=== PATIENT | female | born 1975 | race Caucasian/White ===

== ENCOUNTER 2016-12-21 12:13 | Emergency (ER) | payer OTHER ==
--- NOTE | 2016-12-21 14:22 | UC ---
Throat Pain/Nasal Oliver HPI - HPI Summary HPI Summary: Developed significant nasal congestion, sneezing, throat irritation 8-9 days ago. Since then nasal congestion has settled down a bit (but not gone) and has developed productive cough and chest congestion. Denies fever or trouble breathing. Concerned about contagion and green sputum. - History of Current Complaint Chief Complaint: UCGeneralIllness Stated Complaint: COUGH,CONGEST, Time Seen by Provider: 12/21/16 13:43 Hx Obtained From: Patient Hx Last Menstrual Period: 11/30/16 ?: No Onset/Duration: Lasting Weeks Severity: Mild Pain Intensity: 0 Pain Scale Used: 0-10 Numeric Cough: Productive Associated Signs & Symptoms: Positive: Sinus Discomfort, Nasal Discharge. Negative: Wheezing, Fever, Vomiting - Allergies/Home Medications Allergies/Adverse Reactions: Allergies Allergy/AdvReac Type Severity Reaction Status Date / Time No Known Allergies Allergy Verified 12/21/16 13:55 Home Medications: Home Medications Multiple Vitamin [Multi Vitamin] 1 tab PO DAILY 12/21/16 [History Confirmed 12/04] Norgestimate-Eth Estradiol(NF) [Ortho Tri-Cyclen (NF)] 1 tab PO DAILY 12/21/16 [ History Confirmed 12/21/16] Ovqrflfqebkcf-Faafcrdrnk-Xvipf [VICKS DAYQUIL/NYQUIL COLD (Liquid)] 30 ml PO Q8HR PRN 12/21/16 [History Confirmed 12/21/16] PMH/Surg Hx/FS Hx/Imm Hx Previously Healthy: Yes - Surgical History Surgical History: Yes Surgery Procedure, Year, and Place: 2001 - Family History Known Family History: Positive: Hypertension - Social History Lives: With Family Alcohol Use: Rare Substance Use Type: None Smoking Status (MU): Never Smoked Tobacco Review of Systems Constitutional: Negative Skin: Negative Eyes: Negative ENT: Nasal Discharge Respiratory: Cough Cardiovascular: Negative Gastrointestinal: Negative Genitourinary: Negative Motor: Negative Neurovascular: Negative Musculoskeletal: Negative Neurological: Negative Psychological: Negative All Other Systems Reviewed And Are Negative: Yes Physical Exam Triage Information Reviewed: Yes Appearance: Well-Appearing, Obese Vital Signs: Initial Vital Signs Temp 98.6 F 12/21/16 13:14 Pulse 99 12/21/16 13:14 Resp 18 12/21/16 13:14 BP 136/82 12/21/16 13:14 Pulse Ox 96 12/21/16 13:14 Vital Signs Reviewed: Yes Eye Exam: Normal Eyes: Positive: Conjunctiva Clear ENT: Positive: Hearing grossly normal, Pharynx normal, Nasal congestion, TMs normal. Negative: Tonsillar swelling, Tonsillar exudate Dental Exam: Normal Neck exam: Normal Neck: Positive: Supple, Nontender, No Lymphadenopathy Respiratory Exam: Normal Respiratory: Positive: Chest non-tender, Lungs clear, Normal breath sounds, No respiratory distress, No accessory muscle use Cardiovascular Exam: Normal Cardiovascular: Positive: RRR, No Murmur Musculoskeletal Exam: Normal Neurological Exam: Normal Psychological Exam: Normal Skin Exam: Normal Throat Pain/Nasal Course/Dx - Differential Dx/Diagnosis Provider Diagnoses: URI likely viral Discharge - Discharge Plan Condition: Stable Disposition: HOME Prescriptions: Guaifenesin-Codeine [Guaiatussin AC 100-10 mg/5Ml] 5 - 10 ml PO Q6H #120 ml MDD 40mL Patient Education Materials: Upper Respiratory Infection (ED) Referrals: Florencio Obrien MD [Primary Care Provider] - 2 Weeks Additional Instructions: Call or return if you develop increasing fever, shortness of breath, chest pain , bloody sputum, or otherwise worsen. If you have not improved at all after several days, contact your primary care physician or return here. NASAL SPRAYS AND DROPS: Decongestant nasal sprays and drops often give dramatic relief from congestion. They are often recommended for patients with sinus infection to assist with sinus drainage. Persons with high blood pressure should consult the doctor before using these nasal sprays. Afrin and Raheem-Synephrine are common kqpw-zkc-pkeahus preparations. They should not be used for more than three days, as "rebound" congestion can occur - - the congestion flares as the drug wears off. A way of dealing with this rebound congestion problem is to medicate only one nostril each time, allowing the other nostril to recover from the medicine' s effects. When you no longer need the drug during the day, spray only one nostril each night. This helps you sleep well without severe rebound congestion. Call your doctor if you develop severe headache, palpitations, or chest pain.
== END 2016-12-21 14:16 | disposition home or self-care (01) ==
LOC: UCEAST 12:13
DX: J06.9 Acute upper respiratory infection, unspecified (principal); E66.9 Obesity, unspecified
CPT/HCPCS: 99202; G0463

== ENCOUNTER 2017-02-02 14:32 | Emergency (ER) | payer OTHER ==
[2017-02-02] MEDS ORDERED: NS 0.9% 1000 ML* 1,000 ML IV ONE (15:34)
[2017-02-02 16:24] LABS: Hematocrit 39 % (35-47); Mean Corpuscular HGB Conc 33 g/dl (31-36); Mean Corpuscular Hemoglobin 30 pg (27-31); Mean Corpuscular Volume 91 fL (80-97); Mean Platelet Volume 9 um3 (7.4-10.4); Red Cell Distribution Width 13 % (10.5-15); White Blood Count 13.6 10^3/ul (3.5-10.8)
[2017-02-02 16:27] LABS: Albumin 4.1 g/dL (3.2-5.2); BUN/Creatinine Ratio 13.6 (8-20); Calcium 9.5 mg/dL (8.6-10.3); EGFR African American 127.6 (>60); EGFR Non-African American 99.2 (>60); Globulin 3.2 g/dL (2-4); Total Bilirubin 0.4 mg/dL (0.2-1.0); Total Protein 7.3 g/dL (6.4-8.9)
[2017-02-02 16:55] LABS: TSH (Thyroid Stimulating Horm) 2.53 mcIU/mL (0.34-5.60)
[2017-02-02] MEDS ORDERED: Iohexol 350* (CONTRAST) 500 ML MDV IV ONE (17:10)
--- NOTE | 2017-02-02 17:45 | RAD ---
Indication: Palpitations, elevated d-dimer. Contrast: Administered 77.9 ml of OMNIPAQUE 350 mgi/ml CTA of the chest was performed after oral and IV contrast administration. Coronal and sagittal reconstructed images were obtained. The inferior thyroid lobes are unremarkable. There is no mediastinal or hilar adenopathy. The pulmonary arterial tree is well opacified. There are no filling defects present to suggest pulmonary embolus. The aorta demonstrates no evidence of aortic dissection or aneurysmal dilatation. There is an isolated left-sided superior vena cava with straining into the right atrium and ventricle. The heart demonstrates no pericardial effusion. The chin major bronchi appear patent. There is some atelectasis in the superior segment of the right lower lobe. No alveolar consolidation is noted. No pneumothorax is noted. The patient is status post cholecystectomy. The visualized abdominal organs demonstrates hepatic steatosis. No adrenal lesions are noted. IMPRESSION: No evidence of pulmonary embolus is noted. Isolated left-sided superior vena cava. Hepatic steatosis is noted..
--- NOTE | 2017-02-02 17:48 | ED ---
Syncope/Near Syncope - HPI Summary HPI Summary: 42F presents with lightheadedness and palpitations. had cholecystomecy 01/28. since then has intermittent lightheadedness and palpations. used to occur with just standing but now happens with no trigger factor. She denies any chest pain or SOB. She denies any nausea or vomiting. She states that she has been slowly introducing food after the surgery so her appetite has not been great. She is also on OCP. She denies any recent travel. She denies any family history of blood clots. - History Of Current Complaint Chief Complaint: EDDizziness Time Seen by Provider: 02/02/17 15:08 - Allergies/Home Medications Allergies/Adverse Reactions: Allergies Allergy/AdvReac Type Severity Reaction Status Date / Time Codeine Allergy Eyes Verified 02/02/17 14:54 Itchy/Swollen/Red/Watery PMH/Surg Hx/FS Hx/Imm Hx Endocrine/Hematology History: Denies: Hx Diabetes Cardiovascular History: Denies: Hx Hypertension History: Denies: Hx Renal Disease - Surgical History Surgery Procedure, Year, and Place: 2001. CHOLECYSTECTOMY-01/28/17 Infectious Disease History: No Infectious Disease History: Denies: Traveled Outside the [place] in Last 30 Days - Family History Known Family History: Positive: Hypertension - Social History Alcohol Use: Rare Substance Use Type: Reports: None Smoking Status (MU): Never Smoked Tobacco Review of Systems Negative: Fever Positive: Palpitations. Negative: Chest Pain Negative: Shortness Of Breath Neurological: Other - lightheadness All Other Systems Reviewed And Are Negative: Yes Physical Exam Triage Information Reviewed: Yes Vital Signs On Initial Exam: Initial Vitals Temp Pulse Resp BP Pulse Ox 98 F 83 16 139/92 97 02/02/17 14:51 02/02/17 14:51 02/02/17 14:51 02/02/17 14:51 02/02/17 14:51 Vital Signs Reviewed: Yes Appearance: Positive: Well-Appearing Skin: Positive: Warm, Dry Head/Face: Positive: Normal Head/Face Inspection Eyes: Positive: Normal, Conjunctiva Clear ENT: Positive: Normal ENT inspection, Pharynx normal, TMs normal Respiratory/Lung Sounds: Positive: Clear to Auscultation, Breath Sounds Present Cardiovascular: Positive: Normal, RRR Abdomen Description: Positive: Other: - mild tenderness on healing surgical scars Bowel Sounds: Positive: Present Neurological: Positive: Sensory/Motor Intact, Alert, Oriented to Person Place, Time, CN Intact II-III, Heel to Toe, Finger to Nose - [place] Coma Scale Best Eye Response: 4 - Spontaneous Best Motor Response: 6 - Obeys Commands Best Verbal Response: 5 - Oriented Coma Scale Total: 15 Diagnostics - Vital Signs Vital Signs Temp Pulse Resp BP Pulse Ox 02/02/17 14:55 98 F 83 16 139/92 97 02/02/17 14:51 98 F 83 16 139/92 97 - Laboratory Lab Results: Lab Results 02/02/17 02/02/17 02/02/17 Range/Units 15:55 15:55 15:55 WBC 13.6 H (3.5-10.8) 10^3/ul RBC 4.30 (4.0-5.4) 10^6/ul Hgb 13.0 (12.0-16.0) g/dl Hct 39 (35-47) % MCV 91 (80-97) fL MCH 30 (27-31) pg MCHC 33 (31-36) g/dl RDW 13 (10.5-15) % Plt Count 326 (150-450) 10^3/ul MPV 9 (7.4-10.4) um3 Neut % (Auto) 71.5 (38-83) % Lymph % (Auto) 18.6 L (25-47) % [place] % (Auto) 7.5 (1-9) % Eos % (Auto) 1.4 (0-6) % Baso % (Auto) 1.0 (0-2) % Absolute Neuts (auto) 9.7 H (1.5-7.7) 10^3/ul Absolute Lymphs (auto) 2.5 (1.0-4.8) 10^3/ul Absolute Monos (auto) 1.0 H (0-0.8) 10^3/ul Absolute Eos (auto) 0.2 (0-0.6) 10^3/ul Absolute Basos (auto) 0.1 (0-0.2) 10^3/ul Absolute Nucleated RBC 0.02 10^3/ul Nucleated RBC % 0.1 D-Dimer, Quantitative (Less Than 230) ng/mL Sodium 135 (133-145) mmol/L Potassium 4.0 (3.5-5.0) mmol/L Chloride 103 (101-111) mmol/L Carbon Dioxide 23 (22-32) mmol/L Anion Gap 9 (2-11) mmol/L BUN 9 (6-24) mg/dL Creatinine 0.66 (0.51-0.95) mg/dL Est GFR ( Amer) 127.6 (>60) Est GFR (Non-Af Amer) 99.2 (>60) BUN/Creatinine Ratio 13.6 (8-20) Glucose 119 H (70-100) mg/dL Lactic Acid 1.5 (0.5-2.0) mmol/L Calcium 9.5 (8.6-10.3) mg/dL Magnesium 2.0 (1.9-2.7) mg/dL Total Bilirubin 0.40 (0.2-1.0) mg/dL AST 43 H (13-39) U/L ALT 45 (7-52) U/L Alkaline Phosphatase 85 (34-104) U/L Troponin I 0.00 (<0.04) ng/mL Total Protein 7.3 (6.4-8.9) g/dL Albumin 4.1 (3.2-5.2) g/dL Globulin 3.2 (2-4) g/dL Albumin/Globulin Ratio 1.3 (1-3) TSH 2.53 (0.34-5.60) mcIU/mL // Range/Units 15:55 WBC (3.5-10.8) 10^3/ul RBC (4.0-5.4) 10^6/ul Hgb (12.0-16.0) g/dl Hct (35-47) % MCV (80-97) fL MCH (27-31) pg MCHC (31-36) g/dl RDW (10.5-15) % Plt Count (150-450) 10^3/ul MPV (7.4-10.4) um3 Neut % (Auto) (38-83) % Lymph % (Auto) (25-47) % [place] % (Auto) (1-9) % Eos % (Auto) (0-6) % Baso % (Auto) (0-2) % Absolute Neuts (auto) (1.5-7.7) 10^3/ul Absolute Lymphs (auto) (1.0-4.8) 10^3/ul Absolute Monos (auto) (0-0.8) 10^3/ul Absolute Eos (auto) (0-0.6) 10^3/ul Absolute Basos (auto) (0-0.2) 10^3/ul Absolute Nucleated RBC 10^3/ul Nucleated RBC % D-Dimer, Quantitative 438 H (Less Than 230) ng/mL Sodium (133-145) mmol/L Potassium (3.5-5.0) mmol/L Chloride (101-111) mmol/L Carbon Dioxide (22-32) mmol/L Anion Gap (2-11) mmol/L BUN (6-24) mg/dL Creatinine (0.51-0.95) mg/dL Est GFR ( Amer) (>60) Est GFR (Non-Af Amer) (>60) BUN/Creatinine Ratio (8-20) Glucose (70-100) mg/dL Lactic Acid (0.5-2.0) mmol/L Calcium (8.6-10.3) mg/dL Magnesium (1.9-2.7) mg/dL Total Bilirubin (0.2-1.0) mg/dL AST (13-39) U/L ALT (7-52) U/L Alkaline Phosphatase (34-104) U/L Troponin I (<0.04) ng/mL Total Protein (6.4-8.9) g/dL Albumin (3.2-5.2) g/dL Globulin (2-4) g/dL Albumin/Globulin Ratio (1-3) TSH (0.34-5.60) mcIU/mL Result Diagrams: 02/02/17 15:55 02/02/17 15:55 Lab Statement: Any lab studies that have been ordered have been reviewed, and results considered in the medical decision making process. - CT CTA chest CT Interpretation: No Acute Changes - IMPRESSION: No evidence of pulmonary embolus is noted. Isolated left-sided superior vena cava. Hepatic steatosis is noted.. CT Interpretation Completed By: Radiologist - EKG No standard instances Cardiac Rate: NL EKG Rhythm: Sinus Rhythm ST Segment: Normal Course/Dx Course Of Treatment: 42F presents with lightheadness and palpitations since having her gallbladder removed 01/28. she denies any chest pain or SOB. Her appetite has been poor. She is on OCP. She alan any family history of blood clots. Her physicial exam was normal. got labs and d-dimer was positive so CTA chest which was normal. explained that do not have reason for palpitations but EKG normal and no PE so likely due to poor appetie and dehydration. patient understands and agrees with plan - Diagnoses Differential Diagnosis/HQI/PQRI: Positive: Hypoglycemia, Hypovolemia, Pulmonary Embolism Provider Diagnoses: Near syncope Discharge - Discharge Plan Condition: Good Disposition: HOME Patient Education Materials: Near Syncope (ED) Referrals: Florencio Obrien MD [Primary Care Provider] - Additional Instructions: Stand up slowly Drink plenty of fluids Follow up with primary within 5 days Return to ED if develop any new or worsening symptoms
[2017-02-02] MEDS ORDERED: Iohexol 350* (CONTRAST) 500 ML MDV IV SCH (18:00)
== END 2017-02-02 18:22 | disposition home or self-care (01) ==
LOC: ED 14:32
DX: R00.2 Palpitations (principal); R55 Syncope and collapse; R53.1 Weakness; R42 Dizziness and giddiness
CPT/HCPCS: 36415; 71275; 80053; 83605; 83735; 84443; 84484; 85025; 85379; 93005; 99282; Q9967

== ENCOUNTER 2018-08-02 12:51 | Emergency (ER) | payer OTHER ==
--- NOTE | 2018-08-02 13:06 | UC ---
Cardiac HPI - HPI Summary HPI Summary: 43 yo female presents with chest pressure. She tells me that last night she was sitting watching tv and developed a pressure in her chest and felt like her heart was racing. She began to feel like she was going to pass out and felt a cooling sensation come over her face. This went away a few minutes later spontaneously, but returned multiple times throughout the rest of the night. These symptoms also woke her up in the middle of the night multiple times. This morning her symptoms were still present and seemed worse than yesterday - prompting her visit to . She had one instance with similar symptoms about a year ago that resolved with minutes. She denies recent illness, fever, chills, SOB, chest pain, abdominal pain, n/v. - History of Current Complaint Stated Complaint: CHEST PRESSURE Time Seen by Provider: 08/02/18 12:53 Hx Obtained From: Patient Hx Last Menstrual Period: 11/30/16 Onset/Duration: Sudden Onset Initial Severity: Mild Current Severity: Mild Pain Intensity: 2 - Allergy/Home Medications Allergies/Adverse Reactions: Allergies Allergy/AdvReac Type Severity Reaction Status Date / Time codeine Allergy Eyes Verified 08/02/18 13:17 Itchy/Swollen/Red/Watery PMH/Surg Hx/FS Hx/Imm Hx - Additional Past Medical History Additional PMH: None - Surgical History Surgical History: Yes Surgery Procedure, Year, and Place: 2001. CHOLECYSTECTOMY-01/28/17 - Family History Known Family History: Positive: Hypertension - Social History Occupation: Employed Full-time Lives: With Family Alcohol Use: Rare Substance Use Type: None Smoking Status (MU): Never Smoked Tobacco Review of Systems All Other Systems Reviewed And Are Negative: Yes Constitutional: Positive: Negative Skin: Positive: Negative Respiratory: Positive: Negative Cardiovascular: Positive: Palpitations, Other - Chest pressure Gastrointestinal: Positive: Negative Genitourinary: Positive: Negative Neurovascular: Positive: Negative Neurological: Positive: Negative Psychological: Positive: Negative Physical Exam - Summary Physical Exam Summary: GENERAL: NAD. WDWN. No pain distress. SKIN: No rashes, sores, lesions, or open wounds. NECK: Supple. Nontender. No lymphadenopathy. CHEST: CTAB. No r/r/w. No accessory muscle use. Breathing comfortably and in no distress. CV: RRR. Without m/r/g. Pulses intact. Cap refill <2seconds ABDOMEN: Soft. NTTP. No distention or guarding. No CVA tenderness. Bowel sounds present NEURO: Alert. PSYCH: Age appropriate behavior. Triage Information Reviewed: Yes Vital Signs: Vital Signs: Temp Pulse Resp BP Pulse Ox 99 F 101 20 131/82 96 08/02/18 13:19 18 13:19 08/02/18 13:19 08/02/18 13:19 08/02/18 13:19 Vital Signs Reviewed: Yes - Assessment/Plan Course Of Treatment: EKG: Sinus tach at 101bpm. No ST changes as read by Dr. Gann. POC glucose mildly elevated at 134. Discussed with pt that for a more appropriate work up including cardiac monitoring, labwork, and imaging - she should be further evaluated in the ED. She was agreeable to this plan and refused ambulance transfer. She will drive herself. - Clinical Impression Provider Diagnoses: Chest pressure. Palpitations Discharge - Sign-Out/Discharge Documenting (check all that apply): Patient Departure All imaging exams completed and their final reports reviewed: No Studies - Discharge Plan Condition: Stable Disposition: HOME-RECOMMEND TO ED Referrals: Florencio bOrien MD [Primary Care Provider] - Additional Instructions: Please go to the ER for further evaluation of your near-syncope and palpitations - Billing Disposition and Condition Condition: STABLE Disposition: Home-Recommend to ED
[2018-08-02 13:22] VITALS: BP 131/82
== END 2018-08-02 13:38 | disposition home health service (06) ==
LOC: UCEAST 12:51
DX: R00.2 Palpitations (principal); Z88.5 Allergy status to narcotic agent
CPT/HCPCS: 93005; 99212; G0463

== ENCOUNTER 2018-11-10 07:08 | Emergency (ER) | payer OTHER ==
[2018-11-10] MEDS ORDERED: NS 0.9% 1000 ML** 1,000 ML IV ONE (07:40)
[2018-11-10 08:24] LABS: ABS Basophils 0 10^3/ul (0-0.2); ABS Eosinophils 0 10^3/ul (0-0.6); ABS Lymphocytes 1.7 10^3/ul (1.0-4.8); ABS Monocytes 0.5 10^3/ul (0-0.8); ABS Neutrophils 9.3 10^3/ul (1.5-7.7); ABS Nucleated RBC 0 10^3/ul; Eosinophil % 0.4 %; Hematocrit 39 % (35-47); Hemoglobin 12.9 g/dl (12.0-16.0); Lymphocyte % 14.7 %; Mean Corpuscular HGB Conc 33 g/dl (31-36); Mean Corpuscular Hemoglobin 30 pg (27-31); Mean Corpuscular Volume 92 fL (80-97); Mean Platelet Volume 8.4 fL (7.4-10.4); Nucleated Red Blood Cells % 0; Platelet Count 286 10^3/ul (150-450); Red Blood Count 4.24 10^6/ul (4.00-5.40); Red Cell Distribution Width 13 % (10.5-15); White Blood Count 11.7 10^3/ul (3.5-10.8)
[2018-11-10 08:45] LABS: ALT 30 U/L (7-52); AST 43 U/L (13-39); Albumin 4.2 g/dL (3.2-5.2); Albumin/Globulin Ratio 1.4 (1-3); Alkaline Phosphatase 69 U/L (34-104); Anion Gap 12 mmol/L (2-11); BUN/Creatinine Ratio 10.7 (8-20); Blood Urea Nitrogen 8 mg/dL (6-24); CO2 Carbon Dioxide 23 mmol/L (22-32); Calcium 9.6 mg/dL (8.6-10.3); Chloride 103 mmol/L (101-111); EGFR Non-African American 85.2 (>60); Glucose 157 mg/dL (70-100); Magnesium 1.8 mg/dL (1.9-2.7); Sodium 138 mmol/L (135-145); Total Protein 7.2 g/dL (6.4-8.9)
[2018-11-10 08:49] LABS: HCG Pregnancy < 0.60 mIU/mL
[2018-11-10 09:24] LABS: Urine Appearance Cloudy; Urine Bacteria Absent (Absent); Urine Bilirubin Negative (Negative); Urine Blood 2+ (Negative); Urine Color Straw; Urine Glucose Negative (Negative); Urine Ketones Negative (Negative); Urine Nitrite Negative (Negative); Urine Protein Negative (Negative); Urine Red Blood Cell Trace(0-2/hpf) (Absent); Urine Specific Gravity 1.003 (1.010-1.030); Urine Squamous Epithelial Cell Present (Absent); Urine Urobilinogen Negative (Negative); Urine White Blood Cell Absent (Absent)
[2018-11-10 10:09] VITALS: BP 141/89
--- NOTE | 2018-11-11 05:46 | ED ---
Abdominal Pain/Female - HPI Summary HPI Summary: Patient is a 43-year-old female who presents to the emergency department for ongoing abdominal pain and vomiting 2 weeks. Patient states pain worsened today and she presents for evaluation. Patient notes been having issues with intermittent diarrhea and constipation. Patient notes she feels as though she has a lot of gas and bloating trapped her abdomen. Symptoms are moderate in severity. No current modifying factors. Patient otherwise denies past medical history. Otherwise denies fever, chills, URI sxs, urinary sxs. - History of Current Complaint Chief Complaint: EDNauseaVomitDiarrh Stated Complaint: GENERAL ILLNESS Time Seen by Provider: 11/10/18 07:20 Hx Obtained From: Patient Hx Last Menstrual Period: 11/30/16 Pain Intensity: 0 Pain Scale Used: 0-10 Numeric Allergies/Adverse Reactions: Allergies Allergy/AdvReac Type Severity Reaction Status Date / Time codeine Allergy Eyes Verified 08/02/18 13:17 Itchy/Swollen/Red/Watery PMH/Surg Hx/FS Hx/Imm Hx Previously Healthy: Yes Endocrine/Hematology History: Denies: Hx Diabetes Cardiovascular History: Denies: Hx Hypertension History: Denies: Hx Renal Disease - Surgical History Surgery Procedure, Year, and Place: 2001. CHOLECYSTECTOMY-01/28/17 - Immunization History Immunizations Up to Date: Yes Infectious Disease History: No Infectious Disease History: Denies: Traveled Outside the [place] in Last 30 Days - Family History Known Family History: Positive: Hypertension - Social History Occupation: Unemployed Lives: With Family Alcohol Use: Rare Substance Use Type: Reports: None Smoking Status (MU): Never Smoked Tobacco Review of Systems Constitutional: Negative Negative: Fever, Chills Eyes: Negative ENT: Negative Cardiovascular: Negative Respiratory: Negative Positive: Abdominal Pain. Negative: Vomiting, Diarrhea Genitourinary: Negative Negative: dysuria, frequency, flank pain Neurological: Negative All Other Systems Reviewed And Are Negative: Yes Physical Exam Triage Information Reviewed: Yes Vital Signs On Initial Exam: Initial Vitals Temp Pulse Resp BP Pulse Ox 98.1 F 102 16 115/87 97 11/10/18 07:18 11/10/18 07:18 11/10/18 07:18 11/10/18 07:18 11/10/18 07:18 Vital Signs Reviewed: Yes Appearance: Positive: Well-Appearing - Pt. sitting up in bed in NAD. present. Anxious. Skin: Positive: Warm, Dry Head/Face: Positive: Normal Head/Face Inspection Eyes: Positive: Normal, EOMI Neck: Positive: Supple Respiratory/Lung Sounds: Positive: Clear to Auscultation, Breath Sounds Present Cardiovascular: Positive: Normal, RRR Abdomen Description: Positive: Other: - Abese. Mildy distended with mild diffuse tenderness on exam. No rebound tenderness or guarding. Negative frost sign. Musculoskeletal: Positive: Normal, Strength/ROM Intact Neurological: Positive: Normal, Alert, Oriented to Person Place, Time, CN Intact II-III Psychiatric: Positive: Affect/Mood Appropriate Diagnostics - Vital Signs Vital Signs Temp Pulse Resp BP Pulse Ox 11/10/18 10:05 99 F 87 17 141/89 98 11/10/18 09:04 89 127/85 97 11/10/18 08:34 86 129/93 97 11/10/18 07:18 98.1 F 102 16 115/87 97 - Laboratory Lab Results: Lab Results 11/10/18 11/10/18 11/10/18 Range/Units 08:13 08:13 08:46 WBC 11.7 H (3.5-10.8) 10^3/ul RBC 4.24 (4.00-5.40) 10^6/ul Hgb 12.9 (12.0-16.0) g/dl Hct 39 (35-47) % MCV 92 (80-97) fL MCH 30 (27-31) pg MCHC 33 (31-36) g/dl RDW 13 (10.5-15) % Plt Count 286 (150-450) 10^3/ul MPV 8.4 (7.4-10.4) fL Neut % (Auto) 79.8 % Lymph % (Auto) 14.7 % [place] % (Auto) 4.7 % Eos % (Auto) 0.4 % Baso % (Auto) 0.4 % Absolute Neuts (auto) 9.3 H (1.5-7.7) 10^3/ul Absolute Lymphs (auto) 1.7 (1.0-4.8) 10^3/ul Absolute Monos (auto) 0.5 (0-0.8) 10^3/ul Absolute Eos (auto) 0 (0-0.6) 10^3/ul Absolute Basos (auto) 0 (0-0.2) 10^3/ul Absolute Nucleated RBC 0 10^3/ul Nucleated RBC % 0 Sodium 138 (135-145) mmol/L Potassium 4.0 (3.5-5.0) mmol/L Chloride 103 (101-111) mmol/L Carbon Dioxide 23 (22-32) mmol/L Anion Gap 12 H (2-11) mmol/L BUN 8 (6-24) mg/dL Creatinine 0.75 (0.51-0.95) mg/dL Est GFR ( Amer) 103.0 (>60) Est GFR (Non-Af Amer) 85.2 (>60) BUN/Creatinine Ratio 10.7 (8-20) Glucose 157 H (70-100) mg/dL Calcium 9.6 (8.6-10.3) mg/dL Magnesium 1.8 L (1.9-2.7) mg/dL Total Bilirubin 0.50 (0.2-1.0) mg/dL AST 43 H (13-39) U/L ALT 30 (7-52) U/L Alkaline Phosphatase 69 (34-104) U/L Total Protein 7.2 (6.4-8.9) g/dL Albumin 4.2 (3.2-5.2) g/dL Globulin 3.0 (2-4) g/dL Albumin/Globulin Ratio 1.4 (1-3) Lipase < 10 L (11.0-82.0) U/L Beta HCG, Quant < 0.60 mIU/mL Urine Color Straw Urine Appearance Cloudy Urine pH 6.0 (5-9) Ur Specific [place] 1.003 L (1.010-1.030) Urine Protein Negative (Negative) Urine Ketones Negative (Negative) Urine Blood 2+ A (Negative) Urine Nitrate Negative (Negative) Urine Bilirubin Negative (Negative) Urine Urobilinogen Negative (Negative) Ur Leukocyte Esterase Negative (Negative) Urine WBC (Auto) Absent (Absent) Urine RBC (Auto) Trace(0-2/hpf) (Absent) Ur Squamous Epith Cells Present A (Absent) Urine Bacteria Absent (Absent) Urine Glucose Negative (Negative) Result Diagrams: 11/10/18 08:13 11/10/18 08:13 Lab Statement: Any lab studies that have been ordered have been reviewed, and results considered in the medical decision making process. Abdominal Pain Fem Course/Dx - Course Course Of Treatment: He should presenting with mild diffuse abdominal pain and bloating. Afebrile stable vital signs. She is a benign abdominal exam. Blood work obtained and is unremarkable including negative and urinalysis. Abdominal x-rays per radiology shows a large amount of stool in the colon, no signs of structural. Suspect this is causing patient's current symptoms. Results were discussed with patient. Recommend using hsbw-hbi-ybyklyy magnesium citrate or MiraLAX to alleviate stool pertinent. Advised to increase fluids and fiber in diet. To schedule close follow-up with PCP for further evaluation if symptoms of bowel irregularity continues. Advised to return to the ER for further evaluation for increased pain, fever, vomiting or if concerned. Patient understands and agrees with plan. - Diagnoses Differential Diagnosis: Positive: Appendicitis, Bowel Obstruction, Constipation , Diverticulitis, Gall Bladder Disease, Hepatitis, Pancreatitis, Peptic Ulcer Disease, Renal Colic, Urinary Tract Infection Provider Diagnoses: Constipation Discharge - Sign-Out/Discharge Documenting (check all that apply): Patient Departure Patient Received Moderate/Deep Sedation with Procedure: No - Discharge Plan Condition: Good Disposition: HOME Patient Education Materials: Constipation (ED), High Fiber Diet (ED) Referrals: Florencio Obrien MD [Primary Care Provider] - Additional Instructions: Follow up with your PCP as scheduled Increase fluids and fiber in diet Recommend over the counter magnesium citrate as directed or over the counter Miralax 1 capful in 8 ounces in Gatorade 3 x a day until bowel movement is produced or over the counter magnesium citrate as directed Return to ER if symptoms change or worsen - Billing Disposition and Condition Condition: GOOD Disposition: Home
== END 2018-11-10 10:05 | disposition home or self-care (01) ==
LOC: ED 07:08
DX: K59.00 Constipation, unspecified (principal); R10.9 Unspecified abdominal pain
CPT/HCPCS: 36415; 74018; 80053; 81003; 81015; 83690; 83735; 84702; 85025; 96360; 99282

== ENCOUNTER 2019-11-20 17:26 | Emergency (ER) | payer OTHER ==
[2019-11-20 18:44] VITALS: BP 125/86
--- NOTE | 2019-11-20 18:57 | UC ---
Throat Pain/Nasal Oliver HPI - HPI Summary HPI Summary: 44-year-old woman comes in with sinusitis symptoms for 3-4 days. She's had a runny nose rhinorrhea is yellow. Does have postnasal drip. Does have a sore throat which hurts when she coughs but not when she swallows. Has had some cough minimal chest congestion. Has tried ibuprofen which did help some symptoms. - History of Current Complaint Chief Complaint: UCRespiratory Stated Complaint: COLD SYMPTOMS Time Seen by Provider: 11/20/19 18:47 Hx Last Menstrual Period: 11/04/19 Pain Intensity: 3 - Allergies/Home Medications Allergies/Adverse Reactions: Allergies Allergy/AdvReac Type Severity Reaction Status Date / Time codeine Allergy Eyes Verified 11/20/19 18:44 Itchy/Swollen/Red/Watery Home Medications: Home Medications Norgestimate-Eth Estradiol(NF) [Ortho Tri-Cyclen (NF)] 1 tab PO DAILY 12/21/16 [ History Confirmed 11/20/19] Amoxicillin PO (*) [Amoxicillin 875 MG (*)] 875 mg PO BID #20 tab 11/20/19 [Rx] Fluticasone NASAL SPRAY 50MCG* [Flonase NASAL SPRAY 50MCG*] 2 spray BOTH NARES DAILY #1 btl 11/20/19 [Rx] Metformin ER (NF) [Glucophage ER 750 MG TAB (NF)] 750 mg PO DAILY 11/20/19 [ History Confirmed 11/20/19] PMH/Surg Hx/FS Hx/Imm Hx Previously Healthy: Yes Endocrine History: Diabetes - Surgical History Surgical History: Yes Surgery Procedure, Year, and Place: 2001. CHOLECYSTECTOMY-01/28/17 - Family History Known Family History: Positive: Hypertension - Social History Alcohol Use: Rare Substance Use Type: None Smoking Status (MU): Never Smoked Tobacco Review of Systems All Other Systems Reviewed And Are Negative: Yes Constitutional: Positive: Other - SEE HPI Skin: Positive: Negative Eyes: Positive: Negative ENT: Positive: Sore Throat, Ear Ache, Nasal Discharge, Sinus Congestion, Sinus Pain/Tenderness Respiratory: Positive: Cough Cardiovascular: Positive: Negative Gastrointestinal: Positive: Negative Motor: Positive: Negative Neurovascular: Positive: Negative Musculoskeletal: Positive: Negative Neurological/Mental Status: Positive: Negative Psychological: Positive: Negative Is Patient Immunocompromised?: No Physical Exam Triage Information Reviewed: Yes Appearance: No Pain Distress, Well-Nourished, Ill-Appearing - MILD Vital Signs: Initial Vital Signs Temp 99.1 F 11/20/19 18:38 Pulse 100 11/20/19 18:38 Resp 16 11/20/19 18:38 BP 125/86 11/20/19 18:38 Pulse Ox 98 11/20/19 18:38 Vital Signs Reviewed: Yes Eye Exam: Normal Eyes: Positive: Conjunctiva Clear ENT: Positive: Pharyngeal erythema, Nasal congestion, Nasal drainage, TMs normal Neck: Positive: Supple Respiratory: Positive: Lungs clear, Normal breath sounds, No respiratory distress Cardiovascular: Positive: RRR Musculoskeletal: Positive: Strength Intact, ROM Intact Neurological: Positive: Alert, Muscle Tone Normal Psychological: Positive: Age Appropriate Behavior Skin Exam: Normal Throat Pain/Nasal Course/Dx - Course Course Of Treatment: DISCUSSED VIRAL VERSES BACTERIAL INFECTIONS AND THE ROLE OF ANTIBIOTICS. PATIENT PREFERS TO BE ON ANTIBIOTICS AT THIS TIME. - Differential Dx/Diagnosis Provider Diagnosis: Sinusitis Discharge ED - Sign-Out/Discharge Documenting (check all that apply): Patient Departure All imaging exams completed and their final reports reviewed: No Studies - Discharge Plan Condition: Stable Disposition: HOME Prescriptions: Amoxicillin PO (*) [Amoxicillin 875 MG (*)] 875 mg PO BID #20 tab Fluticasone NASAL SPRAY 50MCG* [Flonase NASAL SPRAY 50MCG*] 2 spray BOTH NARES DAILY #1 btl Patient Education Materials: Sinusitis (ED) Referrals: Florencio Obrien MD [Primary Care Provider] - Additional Instructions: FOLLOW UP WITH YOUR DOCTOR IF NOT COMPLETELY IMPROVED. GET REEVALUATED SOONER IF NOT IMPROVED OR WORSE OR ANY QUESTIONS OR CONCERNS. Is - Billing Disposition and Condition Condition: STABLE Disposition: Home
== END 2019-11-20 19:30 | disposition home or self-care (01) ==
LOC: UCEAST 17:26
DX: J32.9 Chronic sinusitis, unspecified (principal); J39.2 Other diseases of pharynx; E11.9 Type 2 diabetes mellitus without complications; R09.89 Other specified symptoms and signs involving the circulatory and respiratory systems; Z79.84 Long term (current) use of oral hypoglycemic drugs; Z88.5 Allergy status to narcotic agent
CPT/HCPCS: 99212; G0463